=== PATIENT | male | born 1950 | race Caucasian/White ===

== ENCOUNTER 2021-11-04 12:56 | Emergency (ER) | payer OTHER ==
[~2021-11-04] VITALS: Ht 162.6 cm; Wt 63.5 kg
--- NOTE | ~2021-11-04 | EMS ---
[address] [address] EMS Patient Care Report Name: ANA MARIA AVILES Room #: REG NICK Peraza#: [id number] Admission: 11/04/21 Attend Phys: Discharge: Date of : 52 Report #: [id number] THIS REPORT FOR: //name// Report Transmitted: 11/04/2021 16:16 EMS Care Summary [place], [place]/[facility] Incident [id number] @ 11/04/2021 12:35 Incident Location [id number] [place] [address] 2S Patient ANA MARIA AVILES Male, 71 Years 1950 Patient Address [id number] [place] [address] [address] [place] [address] Chief Complaint cough Disposition Transported No Lights/[place] Dis[place] Reason Sick Person Transported To [facility] Narrative pt found ambulatory in residence, a&o, NAD. pt was seen 5 days ago at urgent care for coughing. he had a negative Covid test at that time. pt was thought to possibly have pneumonia and was started on antibiotics. he states they are not helping and now req eval at [facility]. pt states now his back hurts from coughing so much, as well. pt seats self on cot, transport w/o change. pt to triage, report to [facility] iam consultant. Initial Vitals @12:45P: 94,R: 20,BP: 158/82,Pain: 2/10,GCS: 15,SpO2: 97,Revised Trauma: 12, [address] [place] [address] EMS Patient Care Report Name: ANA MARIA AVILES Room #: REG Karmen#: [id number] Admission: 11/04/21 Attend Phys: Discharge: Date of : 52 Report #: [id number] Assessments @12:41MENTAL:No Abnormalities,SKIN:No Abnormalities,HEENT:Head/Face: No Abnormalities,LUNG SOUNDS:General: Diarrhea,ABDOMEN:General: Diarrhea,PELVIS//GI:EXTREMITIES:PULSE:Radial: 2+ Normal,NEURO:No Abnormalities, Impression Cough Procedures @12:41 ALS Assessment Response: Unchanged @12:42 Stretcher Response: Unchanged Timeline 12:32,Call Received 12:32,Dispatch Notified 12:35,Dispatched 12:36,En Route 12:40,On Scene 12:41,At Patient 12:41,ALS Assessment,Response: Unchanged 12:42,Stretcher,Response: Unchanged 12:45,BP: 158/82 M,PULSE: 94,RR: 20 R,SPO2: 97 Ox,ETCO2: ,BG: ,PAIN: 2,GCS: 15, 12:46,Depart Scene 13:19,At Destination 13:19,Call Closed Disclaimer v1.1 Copyright 2020 [employer] This EMS Care Summary contains data elements from the applicable legal record (which may be displayed differently). It is designed to provide pertinent information for the following purposes: continuity of care, clinical quality, and state data reporting. The complete legal record is available to ED staff and administrators of the receiving hospital in [employer]'s Patient Tracker. All data is provided "as is."
[2021-11-04 14:38] LABS: HEMATOCRIT 45.1 % (42.0-52.0); HEMOGLOBIN 14.7 gm/dL (14.0-18.0); MCH 29.8 pg (26.0-34.0); MCHC 32.6 g/dL (28.0-37.0); MCV 91.2 fL (80.0-100.0); RBC 4.94 mil/uL (4.50-6.00); RDW 15.2 % (10.5-14.5); WBC 10.9 thou/uL (4.0-11.0)
[2021-11-04 14:42] LABS: CALCIUM 9.2 mg/dL (8.5-10.1); CREATININE 1.5 mg/dL (0.7-1.3); POTASSIUM 4.3 mmol/L (3.5-5.1)
[2021-11-04 14:51] LABS: ALBUMIN 3.5 g/dL (3.4-5.0); TOTAL BILIRUBIN 0.4 mg/dL (0.2-1.0); TOTAL PROTEIN 7.1 g/dL (6.4-8.2)
[2021-11-04] MEDS ORDERED: PREDNISONE 10 M10 MG PO (16:35)
[2021-11-04 17:21] VITALS: BP 139/83
--- NOTE | 2021-11-05 07:41 | EKG ---
[address] [place] [address] ELECTROCARDIOGRAM REPORT Name: ANA MARIA AVILES Room #: DEP NICK Peraza#: [id number] Admission: 11/04/21 Attend Phys: Discharge: 11/04/21 Date of : 52 Report #: [id number] [facility] ED Test Date: 2021-11-04 Test Time: 14:43:21 Pat Name: ANA MARIA AVILES Department: Room: Gender: M Roll Over Loader: JACI : 1950 Requested By: Yanely Alcaraz Order Number: [id number] MD: Eliceo Lewis Measurements Intervals [place] Rate: 90 P: 27 WV: 140 QRS: 33 QRSD: 106 T: 33 QT: 367 QTc: 449 Interpretive Statements Sinus rhythm Baseline wander in lead(s) V2 No previous ECG available for comparison Electronically Signed On 11-05-2021 7:40:58 JACKAROO by Eliceo Lewis [email or web address] <ELECTRONICALLY SIGNED> By: Eliceo Lewis MD, [facility] 11/05/21 0740 1443 1443 Eliceo Lewis MD, FACC /EPI
== END 2021-11-04 17:22 | disposition home or self-care (01) ==
LOC: ER 12:56
PROVIDERS: Nurse Practitioner Family
DX: J45.901 Unspecified asthma with (acute) exacerbation (principal); Z20.822 Contact with and (suspected) exposure to COVID-19; R06.00 Dyspnea, unspecified; K21.9 Gastro-esophageal reflux disease without esophagitis; E78.5 Hyperlipidemia, unspecified; F32.9 Major depressive disorder, single episode, unspecified; F41.9 Anxiety disorder, unspecified; Z88.0 Allergy status to penicillin